=== PATIENT | male | born 1985 | race Caucasian/White ===

== ENCOUNTER 2018-03-23 22:51 | Emergency (ER) | payer OTHER ==
[2018-03-23] MEDS: IBUPROFEN 800 MG TAB PO (23:26)
== END 2018-03-23 23:45 | disposition left against medical advice (07) ==
LOC: FTE 23:45
DX: R23.8 Other skin changes (principal); L03.312 Cellulitis of back [any part except buttock and flank]
CPT/HCPCS: 99283; Z7502

== ENCOUNTER 2018-05-22 10:21 | Emergency (ER) | payer OTHER ==
[2018-05-22] MEDS: CLINDAMYCIN 600 MG/D5W (PMX) 50 ML IVPB (11:17)
[2018-05-22] MEDS: SOD CHLORIDE 0.9% 1,000 ML IV (11:17)
[2018-05-22] MEDS: DEXAMETHASONE 10 MG/ML 1 ML INJ IV (11:17)
== END 2018-05-22 13:10 | disposition home or self-care (01) ==
LOC: FTE 10:21
DX: L53.9 Erythematous condition, unspecified (principal); H02.845 Edema of left lower eyelid; H02.844 Edema of left upper eyelid; K64.9 Unspecified hemorrhoids
CPT/HCPCS: 96365; 96375; 99284-25; J1100

== ENCOUNTER 2018-06-23 13:03 | Emergency (ER) | payer OTHER | END 2018-06-23 14:21 | disposition home or self-care (01) | LOC: FTE 13:03 | DX: Z76.0 Encounter for issue of repeat prescription (principal) | CPT/HCPCS: 99281; Z7502 ==

== ENCOUNTER 2018-06-28 02:51 | Emergency (ER) | payer OTHER ==
[2018-06-28] MEDS: AZITHROMYCIN 250 MG TAB PO (04:37)
[2018-06-28] MEDS: CEFTRIAXONE 250 MG INJ IM (04:38)
[2018-06-28] MEDS: PENICILLIN G BENZ 2.4 MIL UNIT SYG IM (04:38)
[2018-06-28 15:18] LABS: RAPID PLASMA REAGIN NONREACTIVE (NR)
== END 2018-06-28 04:54 | disposition home or self-care (01) ==
LOC: FTE 02:51
DX: F15.10 Other stimulant abuse, uncomplicated (principal); F14.10 Cocaine abuse, uncomplicated; F12.10 Cannabis abuse, uncomplicated; F17.210 Nicotine dependence, cigarettes, uncomplicated; Z20.2 Contact with and (suspected) exposure to infections with a predominantly sexual mode of transmission; Z72.51 High risk heterosexual behavior
CPT/HCPCS: 36415; 86592; 87591; 96372; 99284-25

== ENCOUNTER 2018-06-30 08:51 | Emergency (ER) | payer OTHER | END 2018-06-30 09:48 | disposition home or self-care (01) | LOC: FTE 08:51 | DX: Z20.2 Contact with and (suspected) exposure to infections with a predominantly sexual mode of transmission (principal); F17.210 Nicotine dependence, cigarettes, uncomplicated | CPT/HCPCS: 99283; Z7502 ==

== ENCOUNTER 2018-09-02 12:52 | Emergency (ER) | payer SELFPAY, OTHER ==
[2018-09-02 14:31] LABS: URINE BLOOD (Dip) POC Negative (NEGATIVE); URINE GLUCOSE (Dip) POC Negative (NEGATIVE); URINE KETONES (Dip) POC Trace (NEGATIVE); URINE LEUKOCYTE EST (Dip) POC Negative (NEGATIVE); URINE NITRITE (Dip) POC Negative (NEGATIVE); URINE TOTAL PROTEIN POC 1+ (NEGATIVE)
[2018-09-02 15:09] LABS: OCCULT BLOOD STOOL NEGATIVE (NEGATIVE)
== END 2018-09-02 15:51 | disposition home or self-care (01) ==
LOC: FTE 12:52
DX: R19.5 Other fecal abnormalities (principal); F17.210 Nicotine dependence, cigarettes, uncomplicated
CPT/HCPCS: 81003; 82270; 99283